=== PATIENT | female | born 1950 | race Caucasian/White ===

== ENCOUNTER 2020-10-14 18:20 | Emergency (ER) | payer MEDICARE, OTHER ==
[~2020-10-14 18:20] MED LIST: BETAPACE80 MG PO; ELIQUIS5 MG PO; HCTZ25 MG PO; LOSARTAN POTAS100 MG PO; MACROBID100 MG PO; METOPROLOL ER-1 EAC1 PO
[2020-10-14] MEDS ORDERED: NORCO 5-325 TA1 EACH PO (20:04)
== END 2020-10-14 20:25 | disposition home or self-care (01) ==
LOC: FER 18:20
DX: S52.502A Unspecified fracture of the lower end of left radius, initial encounter for closed fracture (principal); I11.0 Hypertensive heart disease with heart failure; I50.9 Heart failure, unspecified; W19.XXXA Unspecified fall, initial encounter; Y92.009 Unspecified place in unspecified non-institutional (private) residence as the place of occurrence of the external cause
CPT/HCPCS: 73110

== ENCOUNTER 2020-11-04 16:15 | Emergency (ER) | payer MEDICARE, OTHER ==
[~2020-11-04 16:15] MED LIST changes: +NORCO 5-325 TA1 EACH PO
[2020-11-04 18:32] LABS: BASOPHIL 0.3 % (0-2); EOSINOPHIL 0.2 % (0-7); HCT 32.3 % (37.0-47.0); HGB 10.9 g/dl (12.5-16.0); LYMPHOCYTE 10.1 % (15-48); MCHC 33.7 g/dL (32.0-36.0); MCV 94.7 fL (78.0-100.0); MONOCYTE 5.8 % (0-12); MPV 11.9 fL (6.0-9.5); NEUTROPHIL 83.4 % (41-80); NRBC 0; PLT 235 K/uL (150-400); RBC 3.41 M/uL (4.20-5.40); RDW 14.2 % (11.5-14.0); WBC 6.2 K/uL (4.0-10.5)
[2020-11-04 18:47] LABS: BUN/CREAT RATIO (CALC) 14.9 RATIO; CREATININE 1.14 mg/dL (0.51-0.95); POTASSIUM 3.8 mmol/L (3.5-5.1)
[2020-11-04] MEDS ORDERED: ULTRAM50 MG PO (19:22)
[2020-11-04] MEDS ORDERED: BACLOFEN 10MG T10 MG PO (19:22)
== END 2020-11-04 19:36 | disposition home or self-care (01) ==
LOC: FER 16:15
PROVIDERS: Nurse Practitioner Family
DX: M54.31 Sciatica, right side (principal); M62.838 Other muscle spasm; I10 Essential (primary) hypertension; I48.91 Unspecified atrial fibrillation; Z88.0 Allergy status to penicillin; Z88.2 Allergy status to sulfonamides; Z88.8 Allergy status to other drugs, medicaments and biological substances; Z79.899 Other long term (current) drug therapy
CPT/HCPCS: 36415; 80048; 85025; 99283; J1100

== ENCOUNTER 2022-03-15 20:35 | Inpatient (IN) | payer MEDICARE, OTHER ==
[~2022-03-15] VITALS: Ht 172.7 cm; Wt 77.6 kg
[~2022-03-15 20:35] MED LIST changes: +BACLOFEN 10MG T10 MG PO; +COZAAR100 MG PO; -LOSARTAN POTAS100 MG PO; +ULTRAM50 MG PO
[2022-03-15 21:24] LABS: BASOPHIL 0.5 % (0-2); EOSINOPHIL 0.6 % (0-7); HCT 37.1 % (37.0-47.0); HGB 12.3 g/dl (12.5-16.0); LYMPHOCYTE 12.9 % (15-48); MCH 29.9 pg (25.0-31.0); MCHC 33.2 g/dL (32.0-36.0); MONOCYTE 3.3 % (0-12); MPV 11.3 fL (6.0-9.5); NEUTROPHIL 82.3 % (41-80); NRBC 0; PLT 292 K/uL (150-400); RBC 4.12 M/uL (4.20-5.40); RDW 13.3 % (11.5-14.0); WBC 12.7 K/uL (4.0-10.5)
[2022-03-15 21:41] LABS: ALBUMIN 3.5 g/dL (3.4-5.0); BILIRUBIN - TOTAL 0.6 mg/dL (0.2-1.0); BUN/CREAT RATIO (CALC) 16.4 RATIO; CREATININE 1.22 mg/dL (0.51-0.95); GLOBULIN (CALCULATION) 3.8 g/dL; POTASSIUM 3.8 mmol/L (3.5-5.1); TOTAL PROTEIN 7.3 g/dL (6.4-8.2)
[2022-03-15 21:50] LABS: LACTIC ACID 1.3 mmol/L (0.4-1.9)
[2022-03-15 23:54] LABS: CORONAVIRUS 2019 SARS-COV-2 NEGATIVE (NEGATIVE); INFLUENZA A NAA NEGATIVE (NEGATIVE)
[2022-03-16 02:24] LABS: BILIRUBIN NEGATIVE (NEGATIVE); BLOOD 2+ Ery/uL (NEGATIVE); CLARITY CLEAR (CLEAR); COLOR YELLOW (YELLOW); GLUCOSE (U) NORMAL (NORMAL); LEUKOCYTES NEGATIVE Leu/uL (NEGATIVE); NITRITE NEGATIVE (NEGATIVE); PROTEIN NEGATIVE (NEGATIVE); SPECIFIC GRAVITY 1.015 (1.001-1.030); UROBILINOGEN 0.2 mg/dL (0.2-1.0); pH 6.5 (5.0-9.0)
[2022-03-16 02:46] LABS: BACTERIA TRACE; URINARY WBC RARE
[2022-03-16 10:35] LABS: BASOPHIL 0.2 % (0-2); EOSINOPHIL 0.1 % (0-7); HCT 35.3 % (37.0-47.0); HGB 11.8 g/dl (12.5-16.0); LYMPHOCYTE 11.5 % (15-48); MCH 30.3 pg (25.0-31.0); MCHC 33.4 g/dL (32.0-36.0); MCV 90.7 fL (78.0-100.0); MONOCYTE 3.3 % (0-12); MPV 11.3 fL (6.0-9.5); NEUTROPHIL 84.6 % (41-80); NRBC 0; PLT 313 K/uL (150-400); RBC 3.89 M/uL (4.20-5.40); RDW 13.6 % (11.5-14.0); WBC 13.5 K/uL (4.0-10.5)
[2022-03-16 10:57] LABS: BUN/CREAT RATIO (CALC) 19.4 RATIO; CREATININE 1.03 mg/dL (0.51-0.95); MAGNESIUM 1.8 mg/dL (1.8-2.4); POTASSIUM 4.3 mmol/L (3.5-5.1)
--- NOTE | 2022-03-16 11:44 | NUR ---
TRICIA Torres MARY D, ZUNILDA have reviewed the data collected by the [facility] [employer] on the inpatient admission database and agree with the findings. TRCIIA Torres MARY D, ZUNILDA have developed and discussed the care plan with ,[employer] and made necessary changes.
[2022-03-16] MEDS ORDERED: TOPROL XL 50 MG50 MG PO (12:26)
[2022-03-16] MEDS ORDERED: WARFARIN SODIUM5 MG PO (12:28)
[2022-03-16] MEDS ORDERED: WARFARIN SODIU2.5 MG PO (12:30)
[2022-03-16] MEDS ORDERED: LASIX40 MG PO (12:32)
[2022-03-16] MEDS ORDERED: MULTIPLE VITAM1 EACH PO (12:33)
[2022-03-16 17:44] LABS: AMYLASE 44 U/L (25-115); LIPASE 107 U/L (73-393)
[2022-03-17 07:16] LABS: BASOPHIL 0.1 % (0-2); EOSINOPHIL 0 % (0-7); HCT 30.2 % (37.0-47.0); LYMPHOCYTE 10.1 % (15-48); MCHC 33.1 g/dL (32.0-36.0); MCV 90.7 fL (78.0-100.0); MONOCYTE 4.6 % (0-12); MPV 11.7 fL (6.0-9.5); NEUTROPHIL 84.7 % (41-80); NRBC 0; PLT 297 K/uL (150-400); RBC 3.33 M/uL (4.20-5.40); RDW 13.8 % (11.5-14.0); WBC 13.8 K/uL (4.0-10.5)
[2022-03-17 07:25] LABS: PROTHROMBIN TIME 63.7 SECONDS (11.9-13.9)
[2022-03-17 08:07] LABS: ALBUMIN 2.4 g/dL (3.4-5.0); BILIRUBIN - TOTAL 0.5 mg/dL (0.2-1.0); BUN/CREAT RATIO (CALC) 25.7 RATIO; C-REACTIVE PROTEIN 5.1 mg/dL (<=0.90); CREATININE 1.05 mg/dL (0.51-0.95); GLOBULIN (CALCULATION) 3.2 g/dL; TOTAL PROTEIN 5.6 g/dL (6.4-8.2)
[2022-03-17 08:21] LABS: INR 7.97 (0.9-1.2); PTT 95.9 SECONDS (24.9-34.6)
[2022-03-18 08:03] LABS: BASOPHIL 0.2 % (0-2); EOSINOPHIL 0 % (0-7); HCT 24.3 % (37.0-47.0); MCH 30.2 pg (25.0-31.0); MCHC 32.9 g/dL (32.0-36.0); MCV 91.7 fL (78.0-100.0); MONOCYTE 5.9 % (0-12); MPV 11.8 fL (6.0-9.5); NEUTROPHIL 76.5 % (41-80); NRBC 0; PLT 249 K/uL (150-400); RBC 2.65 M/uL (4.20-5.40); RDW 14.1 % (11.5-14.0); WBC 10.6 K/uL (4.0-10.5)
[2022-03-18 08:38] LABS: ALBUMIN 2.1 g/dL (3.4-5.0); BILIRUBIN - TOTAL 0.4 mg/dL (0.2-1.0); BUN/CREAT RATIO (CALC) 26.8 RATIO; C-REACTIVE PROTEIN 5.9 mg/dL (<=0.90); CREATININE 1.12 mg/dL (0.51-0.95); GLOBULIN (CALCULATION) 3.1 g/dL; TOTAL PROTEIN 5.2 g/dL (6.4-8.2)
[2022-03-18 08:41] LABS: PROTHROMBIN TIME 64.8 SECONDS (11.9-13.9)
[2022-03-18 08:50] LABS: INR 8.15 (0.9-1.2)
[2022-03-19 06:29] LABS: BASOPHIL 0.5 % (0-2); EOSINOPHIL 0.9 % (0-7); HCT 21.1 % (37.0-47.0); HGB 6.8 g/dl (12.5-16.0); LYMPHOCYTE 25.6 % (15-48); MCH 30.2 pg (25.0-31.0); MCHC 32.2 g/dL (32.0-36.0); MCV 93.8 fL (78.0-100.0); MONOCYTE 5.7 % (0-12); MPV 11.2 fL (6.0-9.5); NEUTROPHIL 66.9 % (41-80); NRBC 0; PLT 217 K/uL (150-400); RBC 2.25 M/uL (4.20-5.40); RDW 13.8 % (11.5-14.0); WBC 7.9 K/uL (4.0-10.5)
[2022-03-19 06:33] LABS: INR 1.62 (0.9-1.2); PROTHROMBIN TIME 18.7 SECONDS (11.9-13.9)
[2022-03-19 06:58] LABS: BUN/CREAT RATIO (CALC) 23.1 RATIO; CREATININE 1.04 mg/dL (0.51-0.95); MAGNESIUM 2.1 mg/dL (1.8-2.4); POTASSIUM 3.9 mmol/L (3.5-5.1)
[2022-03-19 13:58] LABS: IRON % SATURATION 21.6 %SAT (20-50)
--- NOTE | 2022-03-19 15:14 | NUR ---
CALLED [facility] OFFICE TO REQUEST LAST ECHO RESULTS ORDERED. OFFICE UNABLE TO FAX ANYTHING AT THIS TIME. PER CECE AT [facility] OFFICE PT'S LAST ECHO WAS COMPLETED ON 07/19/2021 AND PT'S EF WAS 60-65%.
[2022-03-20 06:45] LABS: HCT 22.8 % (37.0-47.0); HGB 7.5 g/dl (12.5-16.0); MCH 29.9 pg (25.0-31.0); MCHC 32.9 g/dL (32.0-36.0); MCV 90.8 fL (78.0-100.0); MPV 11.3 fL (6.0-9.5); RBC 2.51 M/uL (4.20-5.40); RDW 14.7 % (11.5-14.0)
[2022-03-20 06:54] LABS: INR 1.26 (0.9-1.2); PROTHROMBIN TIME 15.4 SECONDS (11.9-13.9)
[2022-03-20 07:10] LABS: BUN/CREAT RATIO (CALC) 20.2 RATIO; CREATININE 0.94 mg/dL (0.51-0.95); POTASSIUM 3.6 mmol/L (3.5-5.1)
[2022-03-20 09:04] LABS: BILIRUBIN 1+ mg/dL (NEGATIVE); BLOOD 1+ Ery/uL (NEGATIVE); CLARITY HAZY (CLEAR); COLOR YELLOW (YELLOW); GLUCOSE (U) NORMAL (NORMAL); LEUKOCYTES NEGATIVE Leu/uL (NEGATIVE); NITRITE NEGATIVE (NEGATIVE); PROTEIN NEGATIVE (NEGATIVE); UROBILINOGEN 0.2 mg/dL (0.2-1.0)
[2022-03-20 09:24] LABS: BACTERIA TRACE; SQUAMOUS EPITHELIAL CELLS 20-50
--- NOTE | 2022-03-20 13:55 | NUR ---
03/20/22 Ms. Morales lives at home with her spouse. Prior to admission she was independent in the home and community. A referral was made to [facility] per patient request.
--- NOTE | 2022-03-21 09:17 | NUR ---
CALLED [employer] REGARDING [employer] COVERAGE. PATIENT WILL HAVE TO PAY $431 FOR THE FIRST 30 DAY SUPPLY AND THEN $47 PER 30 DAY SUPPLY AFTERWARDS. DISCUSSED THIS WITH PATIENT AND SHE IS AGREEABLE TO COST. INFORMED [facility] PHARMACIST AND OF PATIENTS DECISSION. ALSO PROVIDED MEMBER WITH SOCIAL SECURITY ADMINISTRATION NUMBER ([phone])
[2022-03-21] MEDS ORDERED: ELIQUIS5 MG PO (09:20)
[2022-03-21] MEDS ORDERED: FOLIC ACID1 MG PO (09:20)
[2022-03-21] MEDS ORDERED: PANTOPRAZOLE SO40 MG PO (09:20)
[2022-03-21] MEDS ORDERED: CARAFATE1 GM PO (09:20)
== END 2022-03-21 11:01 | disposition home or self-care (01) | DRG 378 ==
LOC: FER 20:35 → FMS 03-16 09:00
PROVIDERS: Allergy & Immunology Allergy; Internal Medicine; Nurse Practitioner; Nurse Practitioner Family; Student in an Organized Health Care Education/Training Program; ADMIT Family Medicine
PROC: 30233N1 Transfusion of Nonautologous Red Blood Cells into Peripheral Vein, Percutaneous Approach (ICD-10-PCS; 2022-03-19)
PROC: 0DB98ZX Excision of Duodenum, Via Natural or Artificial Opening Endoscopic, Diagnostic (ICD-10-PCS; principal; 2022-03-20 12:00)
PROC: 0DB78ZX Excision of Stomach, Pylorus, Via Natural or Artificial Opening Endoscopic, Diagnostic (ICD-10-PCS; 2022-03-20 12:00)
DX: K26.4 Chronic or unspecified duodenal ulcer with hemorrhage (principal); A77.0 Spotted fever due to Rickettsia rickettsii; D62 Acute posthemorrhagic anemia; R79.1 Abnormal coagulation profile; K57.10 Diverticulosis of small intestine without perforation or abscess without bleeding; I10 Essential (primary) hypertension; I48.91 Unspecified atrial fibrillation; R31.9 Hematuria, unspecified; Z20.822 Contact with and (suspected) exposure to COVID-19; R53.83 Other fatigue; K21.9 Gastro-esophageal reflux disease without esophagitis; R63.4 Abnormal weight loss; E78.5 Hyperlipidemia, unspecified; R21 Rash and other nonspecific skin eruption; Z95.0 Presence of cardiac pacemaker; Z79.899 Other long term (current) drug therapy; Z88.8 Allergy status to other drugs, medicaments and biological substances; Z88.2 Allergy status to sulfonamides; Z90.710 Acquired absence of both cervix and uterus; Z82.49 Family history of ischemic heart disease and other diseases of the circulatory system; Z79.01 Long term (current) use of anticoagulants; Z68.22 Body mass index [BMI] 22.0-22.9, adult
CPT/HCPCS: 36415; 36430; 70450; 74240; 78278; 80048; 80053; 81001; 82150; 82607; 83540; 83550; 83605; 83690; 83735; 84145; 85025; 85610; 85730; 86140; 86677; 86850; 86900; 86901; 86922; 87040; 88305; 94010; 94760; A4641; A9560; C9113; G0378; J0780; J1170; J1642; J2270; J2405; J2543; J2550; J2704; J7030; J7120; P9016; U0002

== ENCOUNTER 2022-04-28 21:13 | Emergency (ER) | payer MEDICARE, OTHER ==
[~2022-04-28 21:13] MED LIST changes: +CARAFATE1 GM PO; +FOLIC ACID1 MG PO; +LASIX40 MG PO; +MULTIPLE VITAM1 EACH PO; +PANTOPRAZOLE SO40 MG PO; +TOPROL XL 50 MG50 MG PO; +WARFARIN SODIU2.5 MG PO; +WARFARIN SODIUM5 MG PO
[2022-04-28 22:53] LABS: BASOPHIL 0.4 % (0-2); EOSINOPHIL 0.6 % (0-7); HCT 36.4 % (37.0-47.0); HGB 11.8 g/dl (12.5-16.0); LYMPHOCYTE 21.1 % (15-48); MCH 30.3 pg (25.0-31.0); MCHC 32.4 g/dL (32.0-36.0); MCV 93.6 fL (78.0-100.0); MPV 11.9 fL (6.0-9.5); NEUTROPHIL 66.7 % (41-80); NRBC 0; PLT 260 K/uL (150-400); RBC 3.89 M/uL (4.20-5.40); RDW 14.2 % (11.5-14.0); WBC 5.2 K/uL (4.0-10.5)
[2022-04-28 23:08] LABS: ALBUMIN 3.4 g/dL (3.4-5.0); BILIRUBIN - TOTAL 0.5 mg/dL (0.2-1.0); CREATININE 1.31 mg/dL (0.51-0.95); GLOBULIN (CALCULATION) 3.8 g/dL; POTASSIUM 3.3 mmol/L (3.5-5.1); TOTAL PROTEIN 7.2 g/dL (6.4-8.2)
[2022-04-29 00:18] LABS: CORONAVIRUS 2019 SARS-COV-2 NEGATIVE (NEGATIVE); INFLUENZA A NAA NEGATIVE (NEGATIVE)
[2022-04-29 02:02] LABS: BILIRUBIN 1+ mg/dL (NEGATIVE); BLOOD 3+ Ery/uL (NEGATIVE); CLARITY CLEAR (CLEAR); COLOR YELLOW (YELLOW); GLUCOSE (U) NORMAL (NORMAL); LEUKOCYTES NEGATIVE Leu/uL (NEGATIVE); NITRITE NEGATIVE (NEGATIVE); PROTEIN 1+ mg/dL (NEGATIVE); SPECIFIC GRAVITY <=1.005 (1.001-1.030); UROBILINOGEN 0.2 mg/dL (0.2-1.0)
[2022-04-29 02:20] LABS: BACTERIA 2+
[2022-04-29] MEDS ORDERED: DIFLUCAN 100MG100 MG PO (03:44)
[2022-04-29] MEDS ORDERED: NORCO 5-325 TA1 EACH PO (03:44)
[2022-04-29] MEDS ORDERED: ONDANSETRON ODT4 MG PO (03:44)
== END 2022-04-29 04:10 | disposition home or self-care (01) ==
LOC: FER 21:13
PROVIDERS: Physician Assistant
DX: K52.9 Noninfective gastroenteritis and colitis, unspecified (principal); N39.0 Urinary tract infection, site not specified; R06.02 Shortness of breath; I48.91 Unspecified atrial fibrillation; Z90.710 Acquired absence of both cervix and uterus; Z20.822 Contact with and (suspected) exposure to COVID-19; Z98.890 Other specified postprocedural states; Z79.01 Long term (current) use of anticoagulants; Z88.8 Allergy status to other drugs, medicaments and biological substances; Z88.1 Allergy status to other antibiotic agents; Z79.899 Other long term (current) drug therapy
CPT/HCPCS: 36415; 71045; 80053; 81001; 85025; J0696; J2405; J7040; Q9967; U0002

== ENCOUNTER 2022-05-01 13:52 | Inpatient (IN) | payer MEDICARE, OTHER ==
[~2022-05-01] VITALS: Ht 172.7 cm; Wt 63.0 kg
[~2022-05-01 13:52] MED LIST changes: +DIFLUCAN 100MG100 MG PO; +ONDANSETRON ODT4 MG PO
[2022-05-01 17:44] LABS: BASOPHIL 0.8 % (0-2); EOSINOPHIL 1.6 % (0-7); HCT 35.2 % (37.0-47.0); HGB 11.7 g/dl (12.5-16.0); LYMPHOCYTE 18.9 % (15-48); MCH 30.6 pg (25.0-31.0); MCHC 33.2 g/dL (32.0-36.0); MCV 92.1 fL (78.0-100.0); MONOCYTE 12.8 % (0-12); MPV 12.8 fL (6.0-9.5); NEUTROPHIL 65.5 % (41-80); NRBC 0; PLT 256 K/uL (150-400); RBC 3.82 M/uL (4.20-5.40); RDW 13.7 % (11.5-14.0); WBC 2.4 K/uL (4.0-10.5)
[2022-05-01 18:09] LABS: BUN/CREAT RATIO (CALC) 8.9 RATIO; CREATININE 1.23 mg/dL (0.51-0.95); POTASSIUM 3.8 mmol/L (3.5-5.1)
[2022-05-01 21:08] LABS: BILIRUBIN NEGATIVE (NEGATIVE); BLOOD 3+ Ery/uL (NEGATIVE); CLARITY CLEAR (CLEAR); COLOR YELLOW (YELLOW); GLUCOSE (U) NORMAL (NORMAL); LEUKOCYTES NEGATIVE Leu/uL (NEGATIVE); NITRITE NEGATIVE (NEGATIVE); PROTEIN NEGATIVE (NEGATIVE); UROBILINOGEN 0.2 mg/dL (0.2-1.0)
[2022-05-01 21:22] LABS: BACTERIA TRACE
[2022-05-01] MEDS ORDERED: AMLODIPINE BESYL5 MG PO (23:29)
[2022-05-01] MEDS ORDERED: METRONIDAZOLE500 MG PO (23:30)
[2022-05-01] MEDS ORDERED: CIPRO500 MG PO (23:30)
[2022-05-02 06:30] LABS: BASOPHIL 0.4 % (0-2); EOSINOPHIL 1.1 % (0-7); HCT 28.7 % (37.0-47.0); HGB 9.7 g/dl (12.5-16.0); LYMPHOCYTE 25.7 % (15-48); MCH 31.1 pg (25.0-31.0); MCHC 33.8 g/dL (32.0-36.0); MONOCYTE 15.9 % (0-12); MPV 12.3 fL (6.0-9.5); NEUTROPHIL 56.5 % (41-80); NRBC 0; PLT 207 K/uL (150-400); RBC 3.12 M/uL (4.20-5.40); RDW 13.8 % (11.5-14.0)
[2022-05-02 06:33] LABS: WBC 2.8 K/uL (4.0-10.5)
[2022-05-02 06:43] LABS: ALBUMIN 2.7 g/dL (3.4-5.0); BILIRUBIN - TOTAL 0.4 mg/dL (0.2-1.0); CREATININE 1.12 mg/dL (0.51-0.95); GLOBULIN (CALCULATION) 3.4 g/dL; MAGNESIUM 1.4 mg/dL (1.8-2.4); POTASSIUM 3.1 mmol/L (3.5-5.1); TOTAL PROTEIN 6.1 g/dL (6.4-8.2)
--- NOTE | 2022-05-03 04:59 | NUR ---
PT SLEPTED OFF/ON THROUGHOUT THE NIGHT, RESP EVEN AND UNLABORED, STOOL SAMPLE SENT TO LAB, PT HAS C/O SHOULDER PAIN AND HIP PAIN THROUGHOUT THE NIGHT, PT LIMITS MOVEMENT TO TAMI ARMS AND HAS RIGID MOVEMENTS, PT HAS HAD NORCO X2 AND FLEXERIL ONCE THROUGHOUT THE NIGHT IT IS ORDERED ON EMAR. PT STATES THAT PAIN MEDICATION IS EFFECTIVE.PT RESTING IN BED WITH EYES CLOSED, CALL RAMAN INREACH, BED LOCKED AND IN ITS LOWEST POSITION
[2022-05-03 05:54] LABS: BASOPHIL 0.4 % (0-2); EOSINOPHIL 0.9 % (0-7); HCT 31.3 % (37.0-47.0); HGB 10.3 g/dl (12.5-16.0); LYMPHOCYTE 16.3 % (15-48); MCH 30.1 pg (25.0-31.0); MCHC 32.9 g/dL (32.0-36.0); MCV 91.5 fL (78.0-100.0); MONOCYTE 10.9 % (0-12); NEUTROPHIL 70.8 % (41-80); NRBC 0; PLT 222 K/uL (150-400); RBC 3.42 M/uL (4.20-5.40); RDW 14.1 % (11.5-14.0)
[2022-05-03 06:03] LABS: WBC 5.4 K/uL (4.0-10.5)
[2022-05-03 06:20] LABS: ALBUMIN 2.7 g/dL (3.4-5.0); BILIRUBIN - DIRECT 0.1 mg/dL (0.00-0.20); BILIRUBIN - TOTAL 0.4 mg/dL (0.2-1.0); BUN/CREAT RATIO (CALC) 10.1 RATIO; CREATININE 0.99 mg/dL (0.51-0.95); GLOBULIN (CALCULATION) 3.8 g/dL; TOTAL PROTEIN 6.5 g/dL (6.4-8.2)
[2022-05-03 15:10] LABS: POTASSIUM 3.5 mmol/L (3.5-5.1)
[2022-05-03 15:11] LABS: MAGNESIUM 2.1 mg/dL (1.8-2.4)
[2022-05-03 15:30] LABS: CREATININE 0.94 mg/dL (0.51-0.95)
[2022-05-04 06:10] LABS: HCT 31.2 % (37.0-47.0); HGB 10.3 g/dl (12.5-16.0); MCH 30.5 pg (25.0-31.0); MCV 92.3 fL (78.0-100.0); MPV 12.2 fL (6.0-9.5); RBC 3.38 M/uL (4.20-5.40); RDW 14.2 % (11.5-14.0); WBC 7.1 K/uL (4.0-10.5)
[2022-05-04 06:28] LABS: BUN/CREAT RATIO (CALC) 12.9 RATIO; CREATININE 1.01 mg/dL (0.51-0.95); POTASSIUM 3.6 mmol/L (3.5-5.1)
[2022-05-04 14:02] LABS: IRON % SATURATION 9.6 %SAT (20-50)
[2022-05-04] MEDS ORDERED: PRINIVIL20 MG PO ×2 (17:43→17:45)
[2022-05-04] MEDS ORDERED: LASIX20 MG PO (17:43)
[2022-05-04] MEDS ORDERED: PROTONIX 40MG T40 MG PO (17:44)
[2022-05-04] MEDS ORDERED: LOPRESSOR25 MG PO (17:45)
[2022-05-04] MEDS ORDERED: PRAVACHOL20 MG PO (17:47)
[2022-05-04] MEDS ORDERED: NEURONTIN100 MG PO (17:47)
[2022-05-04] MEDS ORDERED: RISPERDAL 0.5M0.5 MG PO (17:48)
[2022-05-04] MEDS ORDERED: NAMENDA 10MG TA10 MG PO (17:48)
[2022-05-04] MEDS ORDERED: MVI PO (17:49)
[2022-05-04] MEDS ORDERED: ASPIRIN325 MG PO (17:51)
[2022-05-04] MEDS ORDERED: SYNTHROID75 MC1 PO (17:52)
[2022-05-04] MEDS ORDERED: ZOLOFT50 MG PO (17:53)
[2022-05-04] MEDS ORDERED: ALBUTEROL INH (17:57)
--- NOTE | 2022-05-04 19:08 | NUR ---
PER EMS [employer] SUPERVISOR WHO DISCUSSED WITH ME WHAT PATIENT IS GOING TO GO WITH SAID THE EMS THEY ARE SENDING CAN HANDLE MONITOR AND FLUIDS. EMS HERE BUT STATED THEY ARE NOT ALLOWED TO DO MONITOR AND WILL BE A LONG TIME BEFORE ONE THAT CAN WILL BE AVAILABLE. CALL TO UPDATE AND DR GOLDBERG STATED PATIENT CAN GO WITHOUT MONITOR. PATIENT TRANSFERRED PER EMS WITH FLUIDS BY STRETCHER.
[2022-05-06 01:06] LABS: ADENOVIRUS F 40/41 Not Detected (Not Detected); ASTROVIRUS Not Detected (Not Detected); C DIFFICILE TOXIN A/B Not Detected (Not Detected); CAMPYLOBACTER Not Detected (Not Detected); CRYPTOSPORIDIUM Not Detected (Not Detected); CYCLOSPORA CAYETANENSIS Not Detected (Not Detected); ENTAMOEBA HISTOLYTICA Not Detected (Not Detected); ENTEROAGGREGATIVE E COLI Not Detected (Not Detected); ENTEROPATHOGENIC E COLI Not Detected (Not Detected); ENTEROTOXIGENIC E COLI Not Detected (Not Detected); GIARDIA LAMBLIA Not Detected (Not Detected); NOROVIRUS GI/GII Not Detected (Not Detected); PLESIOMONAS SHIGELLOIDES Not Detected (Not Detected); ROTAVIRUS A Not Detected (Not Detected); SALMONELLA Not Detected (Not Detected); SAPOVIRUS Not Detected (Not Detected); SHIGA-TOXIN-PRODUCING E COLI Not Detected (Not Detected); SHIGELLA/ENTEROINVASIVE E COLI Not Detected (Not Detected); VIBRIO Not Detected (Not Detected); VIBRIO CHOLERAE Not Detected (Not Detected); YERSINIA ENTEROCOLITICA Not Detected (Not Detected)
== END 2022-05-04 19:21 | disposition other institution (70) | DRG 392 ==
LOC: FER 13:52 → FTCU 20:12
PROVIDERS: Family Medicine; Nurse Practitioner; Nurse Practitioner Family; ADMIT Internal Medicine
DX: K52.3 Indeterminate colitis (principal); I48.20 Chronic atrial fibrillation, unspecified; A77.0 Spotted fever due to Rickettsia rickettsii; R29.2 Abnormal reflex; M62.838 Other muscle spasm; E87.6 Hypokalemia; E83.42 Hypomagnesemia; N18.30 Chronic kidney disease, stage 3 unspecified; D63.1 Anemia in chronic kidney disease; Z20.822 Contact with and (suspected) exposure to COVID-19; R63.4 Abnormal weight loss; E78.5 Hyperlipidemia, unspecified; Z90.710 Acquired absence of both cervix and uterus; Z95.0 Presence of cardiac pacemaker; Z82.49 Family history of ischemic heart disease and other diseases of the circulatory system; Z88.2 Allergy status to sulfonamides; Z88.8 Allergy status to other drugs, medicaments and biological substances; Z88.1 Allergy status to other antibiotic agents; K29.80 Duodenitis without bleeding; D72.819 Decreased white blood cell count, unspecified; R00.0 Tachycardia, unspecified; E86.0 Dehydration; I12.9 Hypertensive chronic kidney disease with stage 1 through stage 4 chronic kidney disease, or unspecified chronic kidney disease; M25.511 Pain in right shoulder; Z79.01 Long term (current) use of anticoagulants
CPT/HCPCS: 36415; 70450; 80048; 80053; 80076; 81001; 82550; 83540; 83550; 83615; 83735; 83993; 84145; 85025; 87045; 87046; 87205; 87449; 93005; 94010; 94760; J0290; J0696; J1100; J2405; J3370; J3475; J7030; J7050; J7120; U0002